=== PATIENT | male | born 2000 | race Hispanic/Latino ===

== ENCOUNTER 2025-08-23 19:59 | Emergency (ER) | payer SELFPAY ==
[2025-08-23] MEDS ORDERED: Tetracaine 0.5% PF 4 ML BOT ONE (20:06)
[2025-08-23] MEDS ORDERED: Fluorescein Opthalmic Strip ONE (20:06)
== END 2025-08-23 20:43 | disposition home or self-care (01) ==
LOC: CSHERS 19:59
DX: H02.89 Other specified disorders of eyelid (principal)
CPT/HCPCS: 99283